=== PATIENT | female | born 1990 | race Caucasian/White ===

== ENCOUNTER 2021-07-03 13:49 | Emergency (ER) | payer MEDICAID, OTHER ==
[~2021-07-03] VITALS: Ht 152.4 cm; Wt 59.0 kg
[2021-07-03 14:05] VITALS: BP_SYST 116
--- NOTE | 2021-07-03 14:05 | NUR ---
Pt triaged in waiting room; awaiting available bed.
--- NOTE | 2021-07-03 14:06 | NUR ---
Pt here from home for sore throat. Alert and oriented x 3. Awaiting MD mcghee.
--- NOTE | 2021-07-03 14:21 | NUR ---
Strep throat swab collected at bedside and sent to lab.
[2021-07-03] MEDS ORDERED: LIDOCAINE VISCOUS 2%, 15 ML UDC MM ONE (14:45)
[2021-07-03] MEDS ORDERED: prednisoLONE 15 MG/5 ML UDC PO ONE (14:45)
[2021-07-03] MEDS ORDERED: ONDANSETRON 4 MG ODT TAB PO ONE (15:00)
[2021-07-03] MEDS ORDERED: IBUPROFEN 100 MG/5 ML UDC PO ONE (15:00)
[2021-07-03] MEDS ORDERED: BENZ1LOZ73 PO (15:14)
[2021-07-03] MEDS ORDERED: [UNRECOGNIZED DRUG - CODE] MM (15:14)
[2021-07-03] MEDS ORDERED: PRED20TA PO (15:15)
[2021-07-03] MEDS ORDERED: DEXAMETHASONE SOD PHOSPHATE 10 MG/ML VIAL ONE (15:20)
[2021-07-03] MEDS ORDERED: IBUP-2725 PO (15:21)
--- NOTE | 2021-07-03 15:28 | NUR ---
ER at bedside examining patient.
[2021-07-03 15:30] VITALS: BP_SYST 121
[2021-07-03] MEDS ORDERED: DEXAMETHASONE SOD PHOSPHATE 10 MG/ML VIAL IM ONE (15:30)
--- NOTE | 2021-07-03 15:30 | NUR ---
Patient given written and verbal discharge instructions and verbalizes understanding. ER MD discussed with patient the results and treatment provided. Patient in stable condition. ID arm band removed. Rx of cepacol lozenge, ibuprofen, chlorseptic spray, prednisone given. Patient educated on pain management and to follow up with PMD. Pain Scale 1/10 Opportunity for questions provided and answered. Medication side effect fact sheet provided.
== END 2021-07-03 15:30 | disposition home or self-care (01) ==
LOC: SED 13:49
DX: J03.90 Acute tonsillitis, unspecified (principal)
CPT/HCPCS: 36415; 86403; 87081; 96372; 99283; J1100; J2001; Q0162

== ENCOUNTER 2022-09-28 07:52 | Emergency (ER) | payer MEDICAID ==
[~2022-09-28] VITALS: Ht 152.4 cm; Wt 59.0 kg
[~2022-09-28 07:52] MED LIST: BENZ1LOZ73 PO; IBUP-2725 PO; PRED20TA PO; [UNRECOGNIZED DRUG - CODE] MM
[2022-09-28 07:56] VITALS: BP_SYST 130; PULSE 115; RESP 14; TEMP 98.2; O2SAT 99
--- NOTE | 2022-09-28 08:02 | NUR ---
Patient to ER bed 8 to gown for evaluation. Side rails up. Report given to LAZARO GONSALEZ.
--- NOTE | 2022-09-28 08:04 | NUR ---
ER at bedside examining patient.
--- NOTE | 2022-09-28 08:05 | NUR ---
Patient declined Urine HCG, patient states "has implant for bc in arm, and just had period."
--- NOTE | 2022-09-28 08:07 | NUR ---
Patient came from home. Chief Complaint: Flu like sx x3w and left ear pain. Patient reports taking Adderall, Promethazine and Iliana daily. Patient has not had a dose of Adderall today. Patient reports being sick in July 2022 and taking Cipro.
--- NOTE | 2022-09-28 08:07 | NUR ---
Veto krihsnamurthy in ED - 09/28/22 at 0822 by SUKUMAR SHONA Villa at bedside examining patient.
[2022-09-28] MEDS ORDERED: IPRATROPIUM/ALBUTEROL SULFATE 3 ML AMPUL.NEB (DUONEB) INH ONE (08:15)
--- NOTE | 2022-09-28 08:22 | NUR ---
COVID, Flu, Rapid Strep taken to lab now.
[2022-09-28 08:23] LABS: BASOPHILS # (AUTO) 0.1 K/uL (0.0-0.2); BASOPHILS % (AUTO) 0.6 % (0.0-2.0); EOSINOPHILS # (AUTO) 0.3 K/uL (0.0-0.4); EOSINOPHILS % (AUTO) 2.4 % (0.0-4.0); HEMATOCRIT 41.8 % (36-48); HEMOGLOBIN 14.2 g/dL (12.0-16.0); LYMPHOCYTES # (AUTO) 3.3 K/uL (1.0-5.5); LYMPHOCYTES % (AUTO) 27.8 % (20.5-51.5); MEAN CORPUSCULAR HEMOGLOBIN 31 pg (27-31); MEAN CORPUSCULAR HGB CONC 34 % (32-36); MEAN CORPUSCULAR VOLUME 92 fL (79.0-98.0); MONOCYTES # (AUTO) 1.1 K/uL (0.0-1.0); MONOCYTES % (AUTO) 9.5 % (1.7-9.3); NEUTROPHILS % (AUTO) 59.7 % (40.0-70.0); PLATELET COUNT (AUTO) 344 K/uL (130-430); RED BLOOD CELL COUNT(AUTO) 4.55 MIL/uL (4.2-6.2); RED CELL DISTRIBUTION WIDTH 12.5 % (9.0-15.0); WHITE BLOOD COUNT (AUTO) 11.7 K/uL (4.8-10.8)
[2022-09-28] MEDS ORDERED: IBUPROFEN 800 MG TABLET PO ONE (08:30)
[2022-09-28 08:39] LABS: ANION GAP 10 (5-15); CALCIUM 9.2 mg/dL (8.4-11.0); CHLORIDE 101 mmol/L (98-107); CREATININE 0.85 mg/dL (0.55-1.30); GFR AFRICAN AMERICAN 100 mL/min (>90); GLUCOSE 95 mg/dL (74-106); UREA NITROGEN, BLOOD 8 mg/dL (8-21)
[2022-09-28 08:40] VITALS: O2SAT 99
[2022-09-28 08:46] LABS: ALANINE AMINOTRANSFERASE 9 U/L (12-78); ALBUMIN 3.8 g/dL (3.4-4.8); ASPARTATE AMINOTRANSFERASE 15 U/L (10-37); TOTAL BILIRUBIN 0.4 mg/dL (0.0-1.0)
[2022-09-28] MEDS ORDERED: ALBMDI INH (09:53)
[2022-09-28] MEDS ORDERED: AMOX-423 PO (09:53)
[2022-09-28] MEDS ORDERED: IBUP-1969 PO (09:53)
--- NOTE | 2022-09-28 10:00 | NUR ---
Patient given written and verbal discharge instructions and verbalizes understanding. ER MD He discussed with patient the results and treatment provided. Patient in stable condition. ID arm band removed. Rx sent to pharmacy on file. Patient educated on pain management and to follow up with PMD. Pain Scale 6/10. Opportunity for questions provided and answered. Patient discharged a&ox4 and stable, walking out on her own.
--- NOTE | 2022-09-28 10:17 | NUR ---
upon discharge patient was advised not to combine albuterol and adderral. Patient verbalized understanding.
== END 2022-09-28 10:00 | disposition home or self-care (01) ==
LOC: SED 07:52
DX: J40 Bronchitis, not specified as acute or chronic (principal); R55 Syncope and collapse; H66.92 Otitis media, unspecified, left ear; R05.9 Cough, unspecified; R50.9 Fever, unspecified; Z79.899 Other long term (current) drug therapy; Z20.822 Contact with and (suspected) exposure to COVID-19
CPT/HCPCS: 36415; 71045; 80053; 83605; 84484; 85025; 86403; 87081; 93005; 94640; 94760; 99285

== ENCOUNTER 2023-10-01 07:35 | Emergency (ER) | payer BC, MEDICAID ==
[~2023-10-01] VITALS: Ht 157.5 cm; Wt 49.9 kg
[2023-10-01 07:35] VITALS: BP_SYST 100; PULSE 55; RESP 17; TEMP 97; O2SAT 100
[~2023-10-01 07:35] MED LIST changes: +ALBMDI INH; +AMOX-423 PO; +IBUP-1969 PO
[2023-10-01] MEDS: NACL 0.9% 1,000 ML IV ONE (08:07)
[2023-10-01] MEDS ORDERED: DEXTROSE 50% JECT 50 ML DISP.SYRIN ONE (08:15)
[2023-10-01 08:17] LABS: BASOPHILS % (AUTO) 0.4 % (0.0-2.0); EOSINOPHILS # (AUTO) 0.3 K/uL (0.0-0.4); EOSINOPHILS % (AUTO) 2.8 % (0.0-4.0); HEMATOCRIT 41.1 % (36-48); HEMOGLOBIN 13.6 g/dL (12.0-16.0); LYMPHOCYTES # (AUTO) 3.4 K/uL (1.0-5.5); LYMPHOCYTES % (AUTO) 29.2 % (20.5-51.5); MEAN CORPUSCULAR HEMOGLOBIN 31 pg (27-31); MEAN CORPUSCULAR HGB CONC 33 % (32-36); MEAN CORPUSCULAR VOLUME 92 fL (79.0-98.0); MONOCYTES # (AUTO) 0.8 K/uL (0.0-1.0); MONOCYTES % (AUTO) 7.2 % (1.7-9.3); NEUTROPHILS # (AUTO) 7.1 K/uL (1.8-7.7); NEUTROPHILS % (AUTO) 60.4 % (40.0-70.0); PLATELET COUNT (AUTO) 417 K/uL (130-430); RED BLOOD CELL COUNT(AUTO) 4.45 MIL/uL (4.2-6.2); RED CELL DISTRIBUTION WIDTH 13.1 % (9.0-15.0); WHITE BLOOD COUNT (AUTO) 11.7 K/uL (4.8-10.8)
[2023-10-01] MEDS: DEXTROSE 50% JECT 50 ML DISP.SYRIN IVP ONE (08:20)
[2023-10-01] MEDS: KETOROLAC TROMETHAMINE 30 MG VIAL IVP ONE (08:22)
[2023-10-01 08:31] LABS: ALANINE AMINOTRANSFERASE 15 U/L (12-78); ALBUMIN 3.6 g/dL (3.4-4.8); ANION GAP 7 (5-15); ASPARTATE AMINOTRANSFERASE 13 U/L (10-37); CALCIUM 9.1 mg/dL (8.4-11.0); CARBON DIOXIDE 29 mmol/L (23-29); CHLORIDE 101 mmol/L (98-107); CREATININE 0.84 mg/dL (0.55-1.30); GFR AFRICAN AMERICAN 101 mL/min (>90); GLUCOSE 100 mg/dL (74-106); POTASSIUM 3.8 mmol/L (3.5-5.1); SODIUM SERUM 137 mmol/L (136-145); TOTAL BILIRUBIN 0.3 mg/dL (0.0-1.0); TOTAL PROTEIN, SERUM 7.6 g/dL (6.4-8.3); UREA NITROGEN, BLOOD 11 mg/dL (8-21)
[2023-10-01 08:32] LABS: GFR NON AFRICAN-AMERICAN 84 mL/min (>90)
[2023-10-01 08:34] LABS: BILIRUBIN,DIRECT 0.1 mg/dL (0.0-0.3)
[2023-10-01 10:13] VITALS: BP_SYST 112; PULSE 65; RESP 16; TEMP 98; O2SAT 100
== END 2023-10-01 10:00 | disposition home or self-care (01) ==
LOC: SED 07:35
DX: R55 Syncope and collapse (principal); E16.2 Hypoglycemia, unspecified; E86.0 Dehydration; K08.89 Other specified disorders of teeth and supporting structures; Z79.899 Other long term (current) drug therapy; Z79.2 Long term (current) use of antibiotics
CPT/HCPCS: 99285; 96374; 70450; 71045; 96361; 96375; 80076; 80048; 85025; 85379; 84484; 36415; 93005; 82948; J1885; J7030